=== PATIENT | male | born 1980 ===

== ENCOUNTER 2017-04-21 13:57 | Outpatient (RCR) | payer BC, OTHER ==
[~2017-04-21] VITALS: Ht 170.2 cm; Wt 72.6 kg
[2017-04-23] MEDS ORDERED: Lidocaine 1% MPF 10mg/ml 5ml INJ ONE (12:05)
== END 2017-05-16 | disposition home or self-care (01) ==
LOC: WCC 13:57
DX: L02.31 Cutaneous abscess of buttock (principal); Z88.0 Allergy status to penicillin